=== PATIENT | male | born 1955 | race Two or more races ===

== ENCOUNTER 2021-01-30 19:22 | Inpatient (IN) | payer OTHER ==
[~2021-01-30] VITALS: Ht 172.7 cm; Wt 100.9 kg
[2021-01-30 20:29] LABS: Basophils # (auto) 0 10 ^3/uL (0-0.2); Nucleated Red Blood Cells % 0.1 %
[2021-01-30 20:31] LABS: Basophils % (auto) 0.4 % (0.0-2.0); Eosinophils # (auto) 0.1 10 ^3/uL (0-0.8); Eosinophils % (auto) 1.2 % (0.0-7.0); Hematocrit 33.4 % (36.0-46.0); Lymphocytes # (auto) 2.6 10 ^3/uL (0.4-5.4); Lymphocytes % (auto) 23.4 % (10.0-50.0); Mean Corpuscular Hgb Conc. 35.8 g/dL (32.0-36.0); Mean Corpuscular Volume 100.6 fL (80.0-100.0); Monocytes # (auto) 1.4 10 ^3/uL (0-1.3); Monocytes % (auto) 12.4 % (0.0-12.0); Neutrophils # (auto) 6.8 10 ^3/uL (1.6-8.6); Neutrophils % (auto) 62.6 % (37.0-80.0); Platelet Count (auto) 237 10^3/uL (140-450); Red Blood Cells 3.32 10^6/uL (4.0-5.20); Red Cell Distribution Width 12.6 % (11.8-14.3); White Blood Cell 10.9 10^3/uL (4.4-10.8)
[2021-01-30 20:44] LABS: INR 0.98 (0.9-1.15); Partial Thromboplastin Time 26.7 sec (23.0-31.2)
[2021-01-30 21:02] LABS: Albumin 3.5 g/dL (3.4-5.0); BUN/Creatinine Ratio 11.9; Calcium 8.4 mg/dL (8.5-10.1); Potassium 3.8 mmol/L (3.5-5.1)
[2021-01-30 21:45] LABS: Bilirubin, Total 0.3 mg/dL (0.2-1.0); CRP High Sensitivity 1.51 mg/dL (< 0.3)
[2021-01-30] MEDS ORDERED: CLINDAMYCIN 900MG IV 50 ML IV ONE (23:45)
[2021-01-30] MEDS ORDERED: SODIUM CHLORIDE 0.9% 1,000 ML IV ONE (23:45)
[2021-01-30] MEDS ORDERED: KETOROLAC TROMETH 30 MG/ML 1ML VIAL IV ONE (23:45)
[2021-01-31] MEDS ORDERED: FLUT1AER3 IN (00:20)
[2021-01-31] MEDS ORDERED: GLYB5TAB8 PO (00:20)
[2021-01-31] MEDS ORDERED: PROG1CAP PO (00:20)
[2021-01-31] MEDS: NICOTINE 21MG/24 HR TOPICAL PATCH TD SCH ×2 (01:40→10:16)
[2021-01-31] MEDS ORDERED: NITROGLYCERIN 0.4 MG SL TAB SL PRN (01:45)
[2021-01-31] MEDS ORDERED: HYDROcodone-ACET 5/325MG TAB PO PRN (01:45)
[2021-01-31] MEDS ORDERED: DEXTROSE (50%) 50ML SYRG IV PRN (01:45)
[2021-01-31] MEDS ORDERED: ONDANSETRON HCL 4 MG/2 ML VIAL IV PRN (01:45)
[2021-01-31] MEDS ORDERED: MORPHINE SULF INJ 2 MG/ML SYRINGE 1ML IV PRN (01:45)
[2021-01-31] MEDS ORDERED: MORPHINE SULFATE 4 MG/ML SYR/VIAL IV PRN (01:45)
[2021-01-31] MEDS ORDERED: ACETAMINOPHEN 325 MG TAB PO PRN (01:45)
[2021-01-31 02:30] VITALS: BP 131/57
[2021-01-31 05:00] VITALS: BP 131/57
[2021-01-31] MEDS ORDERED: ALBUTEROL SULF HFA 90MCG INH 200DOSE IN SCH (06:00)
[2021-01-31] MEDS: SODIUM CHLOR 0.9% PF (SALINE LOCK) 10ML VIAL/SYR IV SCH ×3 (06:00→21:55)
[2021-01-31] MEDS: ACCU-CHEK COMFORT CURVE STRIP VI SCH ×4 (06:37→21:56)
[2021-01-31] MEDS: CLINDAMYCIN 600MG IV 50 ML IV SCH ×3 (06:38→21:55)
[2021-01-31] MEDS: InsuLIN REG 1unit/0.01ml Soln (100units/ml) SC SCH ×4 (06:51→21:55)
[2021-01-31 07:30] LABS: Basophils # (auto) 0 10 ^3/uL (0-0.2); Basophils % (auto) 0.5 % (0.0-2.0); Eosinophils # (auto) 0.1 10 ^3/uL (0-0.8); Hematocrit 33.6 % (36.0-46.0); Mean Corpuscular Hgb Conc. 34.7 g/dL (32.0-36.0); Monocytes % (auto) 13.4 % (0.0-12.0); Neutrophils # (auto) 4.6 10 ^3/uL (1.6-8.6); Red Blood Cells 3.31 10^6/uL (4.0-5.20)
[2021-01-31 07:32] LABS: Eosinophils % (auto) 1.6 % (0.0-7.0); Hemoglobin 11.6 g/dL (12.2-16.2); Lymphocytes # (auto) 1.9 10 ^3/uL (0.4-5.4); Mean Corpuscular Hemoglobin 35.1 pg (28.0-32.0); Mean Corpuscular Volume 101.2 fL (80.0-100.0); Neutrophils % (auto) 59.5 % (37.0-80.0); Platelet Count (auto) 210 10^3/uL (140-450); Red Cell Distribution Width 12.6 % (11.8-14.3); White Blood Cell 7.7 10^3/uL (4.4-10.8)
[2021-01-31 07:48] LABS: Albumin 3.2 g/dL (3.4-5.0); Calcium 8.1 mg/dL (8.5-10.1)
[2021-01-31 07:50] LABS: Bilirubin, Total 0.4 mg/dL (0.2-1.0); Total Protein 6.3 g/dL (6.4-8.2)
[2021-01-31] MEDS: glyBURIDE 5 MG TAB PO SCH (08:01)
[2021-01-31 08:58] VITALS: BP 125/69
[2021-01-31] MEDS: PROGESTERONE MICRONIZED 100 MG PO SCH (10:00)
[2021-01-31] MEDS: Fluticasone-Umeclidinium-Vilan (Trelegy Ellipta 100-62.5-25 Mcg/I IN SCH (10:00)
[2021-01-31] MEDS: ASCORBIC ACID 500 MG TAB PO SCH ×2 (10:15→21:55)
[2021-01-31] MEDS: FAMOTIDINE (10MG/ML) 2ML VL IV SCH ×2 (10:15→21:55)
[2021-01-31] MEDS: MULTIPLE VITAMIN TAB PO SCH (10:15)
[2021-01-31] MEDS: ZINC SULFATE 220mg CAP or TAB PO SCH (10:15)
[2021-01-31] MEDS: ENOXAPARIN SOD 40 MG/0.4 ML SYRINGE SC SCH (10:16)
[2021-01-31 12:40] VITALS: BP 126/72
[2021-01-31] MEDS ORDERED: cefTRIAXone 1GM/50ML D5W 50 ML IV ONE (13:30)
[2021-01-31 16:56] VITALS: BP 134/68
[2021-01-31 22:00] VITALS: BP 127/69
[2021-02-01 05:00] VITALS: BP 145/78
[2021-02-01 05:29] LABS: Eosinophils # (auto) 0.1 10 ^3/uL (0-0.8); Hemoglobin 11.9 g/dL (12.2-16.2); Nucleated Red Blood Cells % 0.1 %; Red Blood Cells 3.48 10^6/uL (4.0-5.20)
[2021-02-01 05:31] LABS: Basophils # (auto) 0 10 ^3/uL (0-0.2); Basophils % (auto) 0.3 % (0.0-2.0); Eosinophils % (auto) 1.8 % (0.0-7.0); Hematocrit 35.6 % (36.0-46.0); Lymphocytes # (auto) 1.7 10 ^3/uL (0.4-5.4); Lymphocytes % (auto) 19.5 % (10.0-50.0); Mean Corpuscular Hemoglobin 34.2 pg (28.0-32.0); Mean Corpuscular Hgb Conc. 33.5 g/dL (32.0-36.0); Mean Corpuscular Volume 102.3 fL (80.0-100.0); Monocytes # (auto) 1.1 10 ^3/uL (0-1.3); Monocytes % (auto) 12.9 % (0.0-12.0); Neutrophils # (auto) 5.6 10 ^3/uL (1.6-8.6); Neutrophils % (auto) 65.5 % (37.0-80.0); Platelet Count (auto) 235 10^3/uL (140-450); Red Cell Distribution Width 12.4 % (11.8-14.3); White Blood Cell 8.5 10^3/uL (4.4-10.8)
[2021-02-01 06:01] LABS: Potassium 3.9 mmol/L (3.5-5.1)
[2021-02-01 06:10] LABS: BUN/Creatinine Ratio 10.2; Bilirubin, Total 0.3 mg/dL (0.2-1.0); Calcium 8.1 mg/dL (8.5-10.1); Total Protein 6.1 g/dL (6.4-8.2)
[2021-02-01] MEDS: SODIUM CHLOR 0.9% PF (SALINE LOCK) 10ML VIAL/SYR IV SCH ×3 (06:51→21:10)
[2021-02-01] MEDS: CLINDAMYCIN 600MG IV 50 ML IV SCH ×3 (06:51→21:09)
[2021-02-01] MEDS: InsuLIN REG 1unit/0.01ml Soln (100units/ml) SC SCH ×4 (06:51→21:59)
[2021-02-01] MEDS: ACCU-CHEK COMFORT CURVE STRIP VI SCH ×4 (06:51→22:00)
[2021-02-01] MEDS: glyBURIDE 5 MG TAB PO SCH (08:38)
[2021-02-01] MEDS: cefTRIAXone 1GM/50ML D5W 50 ML IV SCH (08:38)
[2021-02-01 09:00] VITALS: BP 131/61
[2021-02-01] MEDS: Fluticasone-Umeclidinium-Vilan (Trelegy Ellipta 100-62.5-25 Mcg/I IN SCH (10:00)
[2021-02-01] MEDS: ZINC SULFATE 220mg CAP or TAB PO SCH (10:00)
[2021-02-01] MEDS: PROGESTERONE MICRONIZED 100 MG PO SCH (10:00)
[2021-02-01] MEDS: FAMOTIDINE (10MG/ML) 2ML VL IV SCH ×2 (10:21→21:08)
[2021-02-01] MEDS: NICOTINE 21MG/24 HR TOPICAL PATCH TD SCH (10:21)
[2021-02-01] MEDS: MULTIPLE VITAMIN TAB PO SCH (10:22)
[2021-02-01] MEDS: ENOXAPARIN SOD 40 MG/0.4 ML SYRINGE SC SCH (10:22)
[2021-02-01] MEDS: ASCORBIC ACID 500 MG TAB PO SCH ×2 (10:22→21:08)
[2021-02-01] MEDS: Glucerna Carbsteady SHAKE Vanilla 8oz PO SCH ×2 (12:05→17:55)
[2021-02-01 12:59] VITALS: BP 136/64
[2021-02-01] MEDS: GABAPENTIN 300 MG CAP PO SCH ×2 (13:56→21:08)
[2021-02-01 16:54] VITALS: BP 150/78
[2021-02-01 22:00] VITALS: BP 129/69
[2021-02-02 05:00] VITALS: BP 131/76
[2021-02-02 05:12] LABS: Eosinophils # (auto) 0.1 10 ^3/uL (0-0.8); Monocytes # (auto) 0.9 10 ^3/uL (0-1.3); Red Blood Cells 3.45 10^6/uL (4.0-5.20); Red Cell Distribution Width 12.4 % (11.8-14.3); White Blood Cell 7.2 10^3/uL (4.4-10.8)
[2021-02-02 05:15] LABS: Basophils # (auto) 0 10 ^3/uL (0-0.2); Basophils % (auto) 0.6 % (0.0-2.0); Eosinophils % (auto) 1.6 % (0.0-7.0); Hemoglobin 12.3 g/dL (12.2-16.2); Lymphocytes # (auto) 1.8 10 ^3/uL (0.4-5.4); Lymphocytes % (auto) 24.6 % (10.0-50.0); Mean Corpuscular Hemoglobin 35.6 pg (28.0-32.0); Mean Corpuscular Hgb Conc. 35.1 g/dL (32.0-36.0); Mean Corpuscular Volume 101.5 fL (80.0-100.0); Monocytes % (auto) 13.1 % (0.0-12.0); Neutrophils # (auto) 4.3 10 ^3/uL (1.6-8.6); Neutrophils % (auto) 60.1 % (37.0-80.0); Nucleated Red Blood Cells % 0.1 %; Platelet Count (auto) 230 10^3/uL (140-450)
[2021-02-02 05:23] LABS: Potassium 3.9 mmol/L (3.5-5.1)
[2021-02-02 05:30] LABS: BUN/Creatinine Ratio 8.8; Calcium 8.2 mg/dL (8.5-10.1)
[2021-02-02] MEDS: GABAPENTIN 300 MG CAP PO SCH ×3 (05:41→21:14)
[2021-02-02] MEDS: SODIUM CHLOR 0.9% PF (SALINE LOCK) 10ML VIAL/SYR IV SCH ×3 (05:41→22:09)
[2021-02-02] MEDS: CLINDAMYCIN 600MG IV 50 ML IV SCH ×3 (05:41→21:14)
[2021-02-02] MEDS: ACCU-CHEK COMFORT CURVE STRIP VI SCH ×4 (05:42→22:08)
[2021-02-02] MEDS: InsuLIN REG 1unit/0.01ml Soln (100units/ml) SC SCH ×4 (05:42→22:00)
[2021-02-02] MEDS: Glucerna Carbsteady SHAKE Vanilla 8oz PO SCH ×3 (08:00→17:10)
[2021-02-02] MEDS: glyBURIDE 5 MG TAB PO SCH (08:13)
[2021-02-02 08:30] VITALS: BP 149/86
[2021-02-02] MEDS: cefTRIAXone 1GM/50ML D5W 50 ML IV SCH (09:23)
[2021-02-02] MEDS: NICOTINE 21MG/24 HR TOPICAL PATCH TD SCH (09:24)
[2021-02-02] MEDS: MULTIPLE VITAMIN TAB PO SCH (09:24)
[2021-02-02] MEDS: ZINC SULFATE 220mg CAP or TAB PO SCH (09:24)
[2021-02-02] MEDS: ENOXAPARIN SOD 40 MG/0.4 ML SYRINGE SC SCH (09:25)
[2021-02-02] MEDS: FAMOTIDINE (10MG/ML) 2ML VL IV SCH ×2 (09:25→21:18)
[2021-02-02] MEDS: ASCORBIC ACID 500 MG TAB PO SCH ×2 (09:25→21:18)
[2021-02-02] MEDS: PROGESTERONE MICRONIZED 100 MG PO SCH (09:26)
[2021-02-02] MEDS: Fluticasone-Umeclidinium-Vilan (Trelegy Ellipta 100-62.5-25 Mcg/I IN SCH (09:26)
[2021-02-02 13:00] VITALS: BP 154/79
[2021-02-02 16:52] VITALS: BP 158/84
[2021-02-02 17:00] VITALS: BP 133/82
[2021-02-02] MEDS: ZOLPIDEM TARTRATE 5 MG TAB PO PRN (21:56)
[2021-02-02 22:00] VITALS: BP_SYST 100; BP_SYST 117; BP_DIAS 68
[2021-02-03 05:00] VITALS: BP 102/59
[2021-02-03] MEDS: SODIUM CHLOR 0.9% PF (SALINE LOCK) 10ML VIAL/SYR IV SCH ×3 (05:35→22:00)
[2021-02-03 05:59] LABS: Basophils # (auto) 0 10 ^3/uL (0-0.2); Eosinophils # (auto) 0.1 10 ^3/uL (0-0.8); Hemoglobin 11.9 g/dL (12.2-16.2); Lymphocytes # (auto) 1.9 10 ^3/uL (0.4-5.4)
[2021-02-03] MEDS: CLINDAMYCIN 600MG IV 50 ML IV SCH ×3 (05:59→22:00)
[2021-02-03 06:02] LABS: Basophils % (auto) 0.5 % (0.0-2.0); Eosinophils % (auto) 1.8 % (0.0-7.0); Hematocrit 33.6 % (36.0-46.0); Lymphocytes % (auto) 25.5 % (10.0-50.0); Mean Corpuscular Hemoglobin 35.9 pg (28.0-32.0); Mean Corpuscular Hgb Conc. 35.5 g/dL (32.0-36.0); Monocytes % (auto) 13.7 % (0.0-12.0); Neutrophils # (auto) 4.4 10 ^3/uL (1.6-8.6); Neutrophils % (auto) 58.5 % (37.0-80.0); Platelet Count (auto) 229 10^3/uL (140-450); Red Blood Cells 3.32 10^6/uL (4.0-5.20); Red Cell Distribution Width 12.4 % (11.8-14.3); White Blood Cell 7.5 10^3/uL (4.4-10.8)
[2021-02-03 06:17] LABS: BUN/Creatinine Ratio 8.7; Calcium 8.2 mg/dL (8.5-10.1)
[2021-02-03] MEDS: GABAPENTIN 300 MG CAP PO SCH (06:17)
[2021-02-03] MEDS: ACCU-CHEK COMFORT CURVE STRIP VI SCH ×4 (06:17→22:00)
[2021-02-03] MEDS: InsuLIN REG 1unit/0.01ml Soln (100units/ml) SC SCH ×4 (06:17→22:00)
[2021-02-03 09:00] VITALS: BP 112/72
[2021-02-03] MEDS: MULTIPLE VITAMIN TAB PO SCH (09:11)
[2021-02-03] MEDS: FAMOTIDINE (10MG/ML) 2ML VL IV SCH (09:11)
[2021-02-03] MEDS: ENOXAPARIN SOD 40 MG/0.4 ML SYRINGE SC SCH (09:11)
[2021-02-03] MEDS: cefTRIAXone 1GM/50ML D5W 50 ML IV SCH (09:11)
[2021-02-03] MEDS: glyBURIDE 5 MG TAB PO SCH (09:12)
[2021-02-03] MEDS: ZINC SULFATE 220mg CAP or TAB PO SCH (09:12)
[2021-02-03] MEDS: ASCORBIC ACID 500 MG TAB PO SCH ×2 (09:12→22:00)
[2021-02-03] MEDS: Fluticasone-Umeclidinium-Vilan (Trelegy Ellipta 100-62.5-25 Mcg/I IN SCH (09:12)
[2021-02-03] MEDS: NICOTINE 21MG/24 HR TOPICAL PATCH TD SCH (09:12)
[2021-02-03] MEDS: PROGESTERONE MICRONIZED 100 MG PO SCH (09:13)
[2021-02-03 13:00] VITALS: BP 121/73
[2021-02-03 14:30] LABS: Urine WBC None Seen /hpf (0 - 5)
[2021-02-03 14:49] LABS: Urine Bacteria NONE SEEN /hpf (None Seen); Urine Blood Negative /uL (Negative); Urine Specific Gravity 1.004 (1.001-1.035)
[2021-02-03 17:00] VITALS: BP 146/68
[2021-02-03 20:00] VITALS: BP 129/77
[2021-02-03 22:00] VITALS: BP 129/77
[2021-02-04] MEDS ORDERED: GABAPENTIN 100 MG CAP PO ONE (01:30)
[2021-02-04] MEDS: CLINDAMYCIN 600MG IV 50 ML IV SCH ×3 (06:00→22:00)
[2021-02-04] MEDS: SODIUM CHLOR 0.9% PF (SALINE LOCK) 10ML VIAL/SYR IV SCH ×3 (06:00→22:00)
[2021-02-04] MEDS: InsuLIN REG 1unit/0.01ml Soln (100units/ml) SC SCH ×4 (06:07→22:00)
[2021-02-04] MEDS: ACCU-CHEK COMFORT CURVE STRIP VI SCH ×4 (06:08→22:00)
[2021-02-04 09:00] VITALS: BP 126/69
[2021-02-04] MEDS ORDERED: LORazepam 2MG/ML-1ML VIAL IV PRN (09:15)
[2021-02-04] MEDS: cefTRIAXone 1GM/50ML D5W 50 ML IV SCH (09:46)
[2021-02-04] MEDS: MULTIPLE VITAMIN TAB PO SCH (09:47)
[2021-02-04] MEDS: ZINC SULFATE 220mg CAP or TAB PO SCH (09:47)
[2021-02-04] MEDS: GABAPENTIN 300 MG CAP PO SCH ×2 (09:47→22:00)
[2021-02-04] MEDS: Fluticasone-Umeclidinium-Vilan (Trelegy Ellipta 100-62.5-25 Mcg/I IN SCH (09:48)
[2021-02-04] MEDS: NICOTINE 21MG/24 HR TOPICAL PATCH TD SCH (09:48)
[2021-02-04] MEDS: PROGESTERONE MICRONIZED 100 MG PO SCH (09:48)
[2021-02-04] MEDS: ASCORBIC ACID 500 MG TAB PO SCH ×2 (09:48→22:00)
[2021-02-04 13:00] VITALS: BP 128/71
[2021-02-04 16:53] VITALS: BP 141/65
[2021-02-04 20:00] VITALS: BP 148/98
[2021-02-04] MEDS: ZOLPIDEM TARTRATE 5 MG TAB PO PRN (21:35)
[2021-02-04 22:00] VITALS: BP 146/98
[2021-02-05] MEDS: CLINDAMYCIN 600MG IV 50 ML IV SCH ×2 (05:46→14:00)
[2021-02-05] MEDS: SODIUM CHLOR 0.9% PF (SALINE LOCK) 10ML VIAL/SYR IV SCH ×2 (06:00→14:00)
[2021-02-05] MEDS: ACCU-CHEK COMFORT CURVE STRIP VI SCH ×2 (06:30→11:30)
[2021-02-05] MEDS: InsuLIN REG 1unit/0.01ml Soln (100units/ml) SC SCH ×2 (06:30→11:30)
[2021-02-05 06:37] LABS: Albumin 3.1 g/dL (3.4-5.0); Bilirubin, Total 0.2 mg/dL (0.2-1.0); Calcium 8.4 mg/dL (8.5-10.1); Total Protein 6.4 g/dL (6.4-8.2)
[2021-02-05] MEDS: cefTRIAXone 1GM/50ML D5W 50 ML IV SCH (08:34)
[2021-02-05 08:57] VITALS: BP 120/58
[2021-02-05] MEDS: Fluticasone-Umeclidinium-Vilan (Trelegy Ellipta 100-62.5-25 Mcg/I IN SCH (10:00)
[2021-02-05] MEDS: PROGESTERONE MICRONIZED 100 MG PO SCH (10:00)
[2021-02-05] MEDS: NICOTINE 21MG/24 HR TOPICAL PATCH TD SCH (10:00)
[2021-02-05] MEDS ORDERED: ceFAZolin 1GM/50ML 100 ML IV ONE (11:01)
[2021-02-05] MEDS ORDERED: ceFAZolin 1GM VL ONE (12:12)
[2021-02-05] MEDS ORDERED: fentaNYL CITRATE 100 MCG/2 ML VL ONE (12:29)
[2021-02-05] MEDS ORDERED: MIDAZOLAM HCL 1MG/1ML-2 ML VIAL ONE (12:29)
[2021-02-05] MEDS ORDERED: ROPIVACAINE 0.5% (5MG/ML) 20ML AMPULE IJ ONE (12:52)
[2021-02-05 13:00] VITALS: BP 140/69
[2021-02-05] MEDS ORDERED: PROPOFOL 10 MG/ML 20 ML IV ONE (13:00)
[2021-02-05] MEDS ORDERED: ONDANSETRON HCL 4 MG/2 ML VIAL IV PRN (13:30)
[2021-02-05] MEDS ORDERED: HYDROmorphone HCL 2 MG/ML VL IV PRN (13:30)
[2021-02-05 15:10] VITALS: BP 120/58
[2021-02-05] MEDS: ASCORBIC ACID 500 MG TAB PO SCH (16:00)
[2021-02-05] MEDS: MULTIPLE VITAMIN TAB PO SCH (16:00)
[2021-02-05] MEDS: GABAPENTIN 300 MG CAP PO SCH (16:00)
[2021-02-05] MEDS: ZINC SULFATE 220mg CAP or TAB PO SCH (16:00)
== END 2021-02-05 16:07 | disposition home or self-care (01) | DRG 623 ==
LOC: EDSEX 19:22 → ER 19:22 → OVERFLOW 01-31 01:31 → EDSEX 01-31 01:31 → CENTRAL 01-31 02:28
PROVIDERS: ADMIT Nurse Practitioner Family; ATTEND Internal Medicine
PROC: 0JBQ0ZZ Excision of Right Foot Subcutaneous Tissue and Fascia, Open Approach (ICD-10-PCS; principal; 2021-02-05 12:36)
DX: E11.628 Type 2 diabetes mellitus with other skin complications (principal); E87.1 Hypo-osmolality and hyponatremia; E44.0 Moderate protein-calorie malnutrition; E11.621 Type 2 diabetes mellitus with foot ulcer; L03.031 Cellulitis of right toe; Z20.822 Contact with and (suspected) exposure to COVID-19; L97.519 Non-pressure chronic ulcer of other part of right foot with unspecified severity; B95.61 Methicillin susceptible Staphylococcus aureus infection as the cause of diseases classified elsewhere; J44.9 Chronic obstructive pulmonary disease, unspecified; F17.210 Nicotine dependence, cigarettes, uncomplicated; E88.09 Other disorders of plasma-protein metabolism, not elsewhere classified; E66.9 Obesity, unspecified; I70.201 Unspecified atherosclerosis of native arteries of extremities, right leg; Z68.33 Body mass index [BMI] 33.0-33.9, adult; Z79.899 Other long term (current) drug therapy
CPT/HCPCS: 36415; 71045; 73630; 73718; 80048; 80053; 81001; 82962; 83036; 83880; 84443; 85025; 85610; 85730; 86141; 87040; 87070; 87075; 87077; 87081; 87186; 87205; 87426; 93926; 93971; 96365; 96375; G0378; J0690; J0696; J1815; J1885; J2250; J2704; J3490